=== PATIENT | male | born 1990 | race African-American/Black ===

== ENCOUNTER 2016-11-13 19:19 | Emergency (ER) | payer OTHER ==
[~2016-11-13] VITALS: Ht 170.2 cm; Wt 93.4 kg
[2016-11-13 19:47] LABS: URINE BILIRUBIN NEGATIVE (Negative); URINE BLOOD TRACE (Negative); URINE COLOR YELLOW; URINE GLUCOSE-RANDOM* NEGATIVE (Negative); URINE KETONES TRACE (Negative); URINE NITRITE NEGATIVE (Negative); URINE PROTEIN (DIPSTICK) 2+ (Negative); URINE SPECIFIC GRAVITY 1.025 (1.003-1.035); URINE UROBILINOGEN 0.2 E.U./dl (0.2-1.0)
[2016-11-13 19:50] LABS: ABSOLUTE NEUTROPHILS 9.5 thou/uL (1.4-8.2); BASOPHILS 0.6 % (0.0-2.0); EOSINOPHILS 0.7 % (0.0-3.0); HEMATOCRIT 44.3 % (42.0-52.0); HEMOGLOBIN 14.7 gm/dL (14.0-18.0); LYMPHOCYTES 14.4 % (24.0-44.0); MCHC 33.3 g/dL (28.0-37.0); MCV 84.2 fL (80.0-100.0); MONOCYTES 6.3 % (1.0-8.0); PLATELET COUNT 280 thou/uL (150-400); RBC 5.26 mil/uL (4.50-6.00); RDW 14.1 % (10.5-14.5); WBC 12.3 thou/uL (4.0-11.0)
[2016-11-13 19:51] LABS: MANUAL DIFF NO
[2016-11-13 20:02] LABS: HYALINE CASTS 0-3 Few /LPF (None Seen); SQUAMOUS 0-3 Few /LPF (0-3)
[2016-11-13 20:03] LABS: BACTERIA 1-9 Few /HPF (None Seen); CRYSTALS None Seen /LPF (None Seen); URINE RBC 0-2 Rare /HPF (0-2); URINE WBC 0-5 Rare /HPF (0-5)
[2016-11-13] MEDS ORDERED: NORCO 5-325 TA1 EACH PO (20:34)
[2016-11-13] MEDS ORDERED: IBUPROFEN 600600 M1 PO (20:34)
[2016-11-13 20:41] VITALS: BP 136/88
== END 2016-11-13 20:49 | disposition home or self-care (01) ==
LOC: ER 19:19
PROVIDERS: Nurse Practitioner
DX: S00.93XA Contusion of unspecified part of head, initial encounter (principal); R10.9 Unspecified abdominal pain; W22.8XXA Striking against or struck by other objects, initial encounter; Y93.89 Activity, other specified; Y92.89 Other specified places as the place of occurrence of the external cause; Y99.9 Unspecified external cause status

== ENCOUNTER 2020-05-13 17:36 | Emergency (ER) | payer OTHER ==
[~2020-05-13] VITALS: Ht 170.2 cm; Wt 104.3 kg
[~2020-05-13 17:36] MED LIST: IBUPROFEN 600600 M1 PO; NORCO 5-325 TA1 EACH PO
[2020-05-13 18:05] VITALS: BP 141/79
== END 2020-05-13 18:06 | disposition home or self-care (01) ==
LOC: ER 17:36
DX: R05 Cough (principal); Z20.828 Contact with and (suspected) exposure to other viral communicable diseases

== ENCOUNTER → 2021-08-07 | Emergency (ER) | payer OTHER ==
[~2021-08-07] VITALS: Ht 170.2 cm; Wt 113.4 kg
[2021-08-07 18:09] VITALS: BP 156/99
== END ==
LOC: ER 17:58
DX: U07.1 COVID-19 (principal); Z53.21 Procedure and treatment not carried out due to patient leaving prior to being seen by health care provider